=== PATIENT | female | born 1970 | race Two or more races ===

== ENCOUNTER 2019-03-28 20:48 | Emergency (ER) | payer OTHER ==
[~2019-03-28] VITALS: Ht 162.6 cm; Wt 78.0 kg
--- NOTE | 2019-03-28 22:11 | NUR ---
pt to ed with abd/flank pain. pt resting in gurney, at bedside, call light within reach md at bedside
[2019-03-28] MEDS ORDERED: MORPHINE SULFATE 4 MG/ML, 1ML ONE (22:23)
[2019-03-28] MEDS ORDERED: ONDANSETRON 2MG/ML, 2ML ONE (22:23)
[2019-03-28] MEDS ORDERED: MORPHINE SULFATE 4 MG/ML, 1ML IVPush PRN (22:30)
[2019-03-28] MEDS ORDERED: ONDANSETRON 2MG/ML, 2ML IVPush ONE (22:30)
[2019-03-28 22:48] LABS: ALANINE AMINOTRANSFERASE 32 U/L (12-78); ALBUMIN 3.7 g/dL (3.4-5.0); ANION GAP 5 mmol/L (5-15); CALCIUM 9.1 mg/dL (8.5-10.1); CHLORIDE 105 mmol/L (98-107); CREATININE 0.79 mg/dL (0.55-1.02)
[2019-03-28 22:49] LABS: ALKALINE PHOSPHATASE 78 U/L (45-117); BILIRUBIN,TOTAL 0.2 mg/dL (0.2-1.0)
[2019-03-28 22:50] LABS: HCG UR SG 1.023 (1.003-1.030); MICROSCOPIC NOT IND
[2019-03-28 22:53] LABS: CULTURE INDICATED? NO
[2019-03-28 22:53] LABS: MEAN CORPUSCULAR HEMOGLOBIN 26.3 pg (27.0-34.8); MEAN CORPUSCULAR HGB CONC 32.1 g/dL (32.4-35.8); MEAN CORPUSCULAR VOLUME 81.9 fL (80-100); MEAN PLATELET VOLUME 10.2 fL (7.4-10.4); PLATELET COUNT 236 x10^3/uL (130-400)
--- NOTE | 2019-03-28 22:53 | NUR ---
CT PENDING HCG.
--- NOTE | 2019-03-28 22:54 | NUR ---
REPORT RECEIVED AND CARE ASSUMED. PT STATES RELIEF AFTER MEDS. RESETING WITH NO NEEDS EXPRESSED. AWAITING CT. CALL LIGHT IN REACH.
--- NOTE | 2019-03-28 23:20 | NUR ---
Pt to CT via tin
[2019-03-28 23:32] LABS: MD YES
[2019-03-28 23:37] LABS: ANISOCYTOSIS 1+; LYMPH#(MANUAL) 2.55 x10^3/uL (1-3.4); LYMPHS% (MANUAL) 37 % (22-44); MONOS#(MANUAL) 0.48 x10^3/uL (0.3-2.7); MONOS% (MANUAL) 7 % (2-9); REACTIVE LYMPHS # (MANUAL) 0.21 x10^3/uL (0-0); REACTIVE LYMPHS % (MANUAL) 3 % (0-0); SEG#(MANUAL) 3.66 x10^3/uL (1.8-6.8); SEGS% (MANUAL) 53 % (42-75)
[2019-03-28 23:38] LABS: <PLATELET ESTIMATE> ADEQUATE; LARGE PLATELETS 1+; POLYCHROMASIA 1+
[2019-03-29 00:32] VITALS: BP 162/95
== END 2019-03-29 00:34 | disposition home or self-care (01) ==
LOC: ED 22:38
DX: N83.292 Other ovarian cyst, left side (principal); I10 Essential (primary) hypertension; Z90.49 Acquired absence of other specified parts of digestive tract
CPT/HCPCS: 36415; 74176; 80053; 81003; 81025; 83690; 85025; 96374; 96375; 99284; J2270; J2405